=== PATIENT | female | born 1960 | race Caucasian/White ===

== ENCOUNTER 2019-10-06 11:59 | Observation (INO) | payer BC ==
[2019-10-06] MEDS ORDERED: Sodium Chloride 0.9% 10 ML Syringe FLUSH PRN (12:00)
[2019-10-06] MEDS ORDERED: Sodium Chloride 0.9% 2.5 ML Syringe FLUSH PRN (12:00)
--- NOTE | 2019-10-06 12:12 | EDM.PDOC ---
ED HPI GENERAL MEDICAL PROBLEM - General Chief Complaint: Chest Pain Stated Complaint: CHEST PAIN Time Seen by Provider: 10/06/19 12:08 History Limitations: Reports: No Limitations - History of Present Illness INITIAL COMMENTS - FREE TEXT/NARRATIVE: 59 yo Female with chest pain and left arm numbness. 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 chest Pain Score (Numeric/FACES): 3 - Related Data Allergies Allergy/AdvReac Type Severity Reaction Status Date / Time aspirin Allergy Cannot Verified 10/06/19 12:01 Remember ivp dye Allergy Cannot Uncoded 05/11/15 17:21 Remember Home Meds: Home Meds Levothyroxine 25 mcg PO ACBREAKFAST 05/11/15 [History] Lisinopril 05/11/15 [History] OXcarbazepine [Oxcarbazepine] 05/11/15 [History] atorvaSTATin [Lipitor] 05/11/15 [History] buPROPion [Wellbutrin] 75 mg PO BEDTIME 05/11/15 [History] traZODone 200 mg PO BEDTIME 05/11/15 [History] Past Medical History Cardiovascular History: Reports: High Cholesterol, Hypertension Gastrointestinal History: Reports: GERD 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 Denies: Fever, Chills, Malaise HEENT: Reports: No Symptoms. Denies: Contact Lenses, Dental Pain, Eye Pain, Glasses Respiratory: Reports: No Symptoms. Denies: Shortness of Breath, Wheezing, Pleuritic Chest Pain Cardiovascular: Reports: Chest Pain. Denies: Blood Pressure Problem, Claudication, Dyspnea on Exertion, Edema, Palpitations Endocrine: Reports: No Symptoms. Denies: Fatigue, High Glucose, Low Glucose GI/Abdominal: Reports: No Symptoms. Denies: Abdominal Pain, Anorexia : Reports: No Symptoms. Denies: Discharge, Dysuria Musculoskeletal: Reports: No Symptoms. Denies: Neck Pain, Shoulder Pain, Leg Pain Skin: Reports: No Symptoms. Denies: Cyanosis, Jaundice, Mottled Neurological: Reports: No Symptoms Psychiatric: Reports: No Symptoms Hematologic/Lymphatic: Reports: No Symptoms Immunologic: Reports: No Symptoms ED EXAM, GENERAL - Physical Exam Exam: See Below Exam Limited By: No Limitations General Appearance: Alert, WD/WN, No Apparent Distress Eye Exam: Bilateral Eye: Normal Fundi, Normal Inspection Ears: Normal External Exam, Normal Canal, Normal TMs Ear Exam: Bilateral Ear: Auricle Normal, Canal Normal, TM normal, Bleeding, Discharge Nose: Normal Inspection, Normal Mucosa Throat/Mouth: Normal Inspection, Normal Lips Head: Atraumatic, Normocephalic Neck: Normal Inspection, Supple, Non-Tender Respiratory/Chest: No Respiratory Distress, Lungs Clear, Normal Breath Sounds Cardiovascular: Normal Peripheral Pulses, No JVD, No Murmur GI/Abdominal: Normal Bowel Sounds, Soft, Non-Tender, No Organomegaly (Female) Exam: Deferred Rectal (Female) Exam: No: Deferred Back Exam: Normal Inspection, Full Range of Motion Extremities: Normal Inspection, Normal Range of Motion, No Pedal Edema, Normal Capillary Refill Psychiatric: Normal Affect, Normal Mood Skin Exam: Warm, Dry, Intact, Normal Color, No Rash Lymphatic: No Adenopathy Course - Vital Signs Text/Narrative:: 59-year-old female presents the emergency room with a chief complaint of left- sided chest pain. Also has left elbow pain. Had a cardiogram 3 months ago which showed a an ejection fraction of 65 and no evidence of valvular problems. Patient also had signs of enlargement of the left side of the chest. Patient has never been cathed and she has a history of hypertension and is a smoker. Patient's exam for the most part has been negative. Patient's cardiac enzymes are normal. Patient's EKG is normal. I have discussed the case with her primary care physician and he agrees the patient should be observed overnight and he will follow-up for care for possible cardiology consult when this acute episode is controlled. Patient will be admitted for chest pain. Last Recorded V/S: Last Vital Signs Temp 96.2 F L 10/06/19 12:00 Pulse 73 10/06/19 13:43 Resp 18 10/06/19 12:00 BP 192/90 H 10/06/19 13:43 Pulse Ox 96 10/06/19 13:43 - Orders/Labs/Meds Orders: Active Orders 24 hr Category Date Time Status EKG Documentation Completion [RC] STAT Care 10/06/19 12:00 Active Nitroglycerin [Nitrostat] Med 10/06/19 13:59 Ordered 0.4 mg SL Q5M PRN Sodium Chloride 0.9% [Saline Flush] Med 10/06/19 12:00 Active 10 ml FLUSH ASDIRECTED PRN Sodium Chloride 0.9% [Saline Flush] Med 10/06/19 12:00 Active 2.5 ml FLUSH ASDIRECTED PRN Saline Lock Insert [OM.PC] Stat Oth 10/06/19 12:00 Ordered Medication Orders Nitroglycerin (Nitrostat) 0.4 mg SL Q5M PRN PRN Reason: Chest Pain Sodium Chloride (Saline Flush) 10 ml FLUSH ASDIRECTED PRN PRN Reason: Keep Vein Open Sodium Chloride (Saline Flush) 2.5 ml FLUSH ASDIRECTED PRN PRN Reason: Keep Vein Open Labs: Laboratory Tests 10/06/19 10/06/19 Range/Units 12:12 12:26 WBC 8.02 (4.0-11.0) K/uL RBC 5.08 (4.30-5.90) M/uL Hgb 15.5 (12.0-16.0) g/dL Hct 45.6 (36.0-46.0) % MCV 89.8 (80.0-98.0) fL MCH 30.5 (27.0-32.0) pg MCHC 34.0 (31.0-37.0) g/dL RDW Std Deviation 43.7 (28.0-62.0) fl RDW Coeff of Yessy 13 (11.0-15.0) % Plt Count 247 (150-400) K/uL MPV 8.90 (7.40-12.00) fL Neut % (Auto) 65.2 (48.0-80.0) % Lymph % (Auto) 26.7 (16.0-40.0) % [place] % (Auto) 6.0 (0.0-15.0) % Eos % (Auto) 1.7 (0.0-7.0) % Baso % (Auto) 0.4 (0.0-1.5) % Neut # (Auto) 5.2 (1.4-5.7) K/uL Lymph # (Auto) 2.1 (0.6-2.4) K/uL [place] # (Auto) 0.5 (0.0-0.8) K/uL Eos # (Auto) 0.1 (0.0-0.7) K/uL Baso # (Auto) 0.0 (0.0-0.1) K/uL Nucleated RBC % 0.0 /100WBC Nucleated RBCs # 0 K/uL Sodium 139 (136-145) mmol/L Potassium 4.4 (3.5-5.1) mmol/L Chloride 100 (98-107) mmol/L Carbon Dioxide 29.4 (21.0-32.0) mmol/L BUN 14 (7.0-18.0) mg/dL Creatinine 0.8 (0.6-1.0) mg/dL Est Cr Clr Drug Dosing 65.38 mL/min Estimated GFR (MDRD) > 60.0 ml/min Glucose 100 (74-106) mg/dL Calcium 9.8 (8.5-10.1) mg/dL Total Bilirubin 0.5 (0.2-1.0) mg/dL AST 24 (15-37) IU/L ALT 18 (14-63) IU/L Alkaline Phosphatase 159 H (46-116) U/L Troponin I < 0.050 (0.000-0.056) ng/mL Total Protein 7.5 (6.4-8.2) g/dL Albumin 3.6 (3.4-5.0) g/dL Globulin 3.9 (2.6-4.0) g/dL Albumin/Globulin Ratio 0.9 (0.9-1.6) Meds: Medications Generic Name Dose Route Start Last Admin Trade Name Freq PRN Reason Stop Dose Admin Nitroglycerin 0.4 mg 10/06/19 13:59 Nitrostat SL Q5M PRN Chest Pain Sodium Chloride 10 ml 10/06/19 12:00 Saline Flush FLUSH ASDIRECTED PRN Keep Vein Open Sodium Chloride 2.5 ml 10/06/19 12:00 Saline Flush FLUSH ASDIRECTED PRN Keep Vein Open Discontinued Medications Generic Name Dose Route Start Last Admin Trade Name Freq PRN Reason Stop Dose Admin Aspirin 325 mg 10/06/19 14:00 Aspirin PO 10/06/19 14:01 ONETIME ONE Morphine Sulfate 4 mg 10/06/19 13:58 Morphine IVPUSH 10/06/19 13:59 ONETIME ONE Ondansetron HCl 4 mg 10/06/19 13:59 Zofran IVPUSH 10/06/19 14:00 ONETIME ONE Departure - Departure Time of Disposition: 14:04 Disposition: Refer to Observation Clinical Impression: Atypical chest pain Instructions: Nonspecific Chest Pain, [id number] Referrals: PCP,None [Primary Care Provider] - Forms: ED Department Discharge Sepsis Event Note - Evaluation Sepsis Screening Result: No Definite Risk - Focused Exam Vital Signs: Vital Signs Temp Pulse Resp BP Pulse Ox 10/06/19 13:43 73 192/90 H 96 10/06/19 12:00 96.2 F L 78 18 181/94 H 98 Date Exam was Performed: 10/06/19 Time Exam was Performed: 14:01 - My Orders Last 24 Hours: My Active Orders 10/06/19 13:59 Nitroglycerin [Nitrostat] 0.4 mg SL Q5M PRN - Assessment/Plan Last 24 Hours: My Active Orders 10/06/19 13:59 Nitroglycerin [Nitrostat] 0.4 mg SL Q5M PRN
[2019-10-06 12:55] LABS: BLOOD UREA NITROGEN,BUN 14 mg/dL (7.0-18.0); CARBON DIOXIDE,CO2 29.4 mmol/L (21.0-32.0); CHLORIDE,CL 100 mmol/L (98-107); GLUCOSE RANDOM 100 mg/dL (74-106); POTASSIUM,K 4.4 mmol/L (3.5-5.1); SODIUM,NA 139 mmol/L (136-145)
--- NOTE | 2019-10-06 13:21 | CR ---
Chest: AP view of the chest was obtained. Comparison: Prior chest x-ray of 03/21/15. Heart size and mediastinum are normal. Lungs are clear with no acute parenchymal change. Bony structures are grossly intact. Impression: 1. Nothing acute is appreciated on AP chest x-ray. Diagnostic code #1 This report was dictated in MDT
[2019-10-06] MEDS ORDERED: Morphine 4 MG/ML Syringe IVPUSH ONE (13:58)
[2019-10-06] MEDS ORDERED: Ondansetron 4 MG/2 ML SDV IVPUSH ONE (13:59)
[2019-10-06] MEDS ORDERED: Nitroglycerin 0.4 MG Tab.SL SL PRN (13:59)
[2019-10-06] MEDS ORDERED: Aspirin 325 MG Tab PO ONE (14:00)
[2019-10-06] MEDS ORDERED: LORazepam 1 MG Tab PO ONE (14:05)
[2019-10-06] MEDS ORDERED: Acetaminophen 325 MG Tab PO PRN (15:30)
[2019-10-06] MEDS ORDERED: Ondansetron 4 MG/2 ML SDV IVPUSH PRN (15:30)
--- NOTE | 2019-10-06 16:04 | PCM.HP.2 ---
H&P History of Present Illness - General Date of Service: 10/06/19 Admit Problem/Dx: Admission Diagnosis/Problem Admission Diagnosis/Problem Chest pain Source of Information: Patient History Limitations: Reports: No Limitations - History of Present Illness Initial Comments - Free Text/Narative: This 59 year old female with pmh of HTN, tobacco abuse, hypothyroidism and anxiety presented to the ED with complaints of midsternal chest pain that started earlier today. She reports the pain radiated in between her scapula and was achey irritating in nature. She also felt numbness and tingling down bilateral arms from elbow down. She reports she has had some neck pain, like she slept wrong, the last day or two. She denies shortness of breath, diaphoresis, or nausea. She denies fevers, chills or palpitations. No URI symptoms. No abdominal pain or urinary symptoms. She reports she has a very stressful job and needs some time away to take care of herself. She reports she has gained 35 lbs in the last few months. She denies CAD or DM. Smokes 1 ppd, but is very motivated to quit now. No alcohol or recreational drug use. In the ED labwork WNL. Troponins negative. CXR negative. EKG SR with no ST changes. BP elevated on arrival, after Ativan given, she was able to calm down and felt improved. She refused Morphine and ZOfran. Aspirin held due to allergy. She is feeling improved now and wanting to go home, but knows she should be evaluated. PCP, Dr Hutson. chest Pain Score (Numeric/FACES): 3 - Related Data Allergies/Adverse Reactions: Allergies Allergy/AdvReac Type Severity Reaction Status Date / Time aspirin Allergy Cannot Verified 10/06/19 16:11 Remember ivp dye Allergy Cannot Uncoded 10/06/19 16:11 Remember Home Medications: Home Meds Levothyroxine 25 mcg PO ACBREAKFAST 05/11/15 [History] Lisinopril 05/11/15 [History] OXcarbazepine [Oxcarbazepine] 05/11/15 [History] atorvaSTATin [Lipitor] 05/11/15 [History] buPROPion [Wellbutrin] 75 mg PO BEDTIME 05/11/15 [History] traZODone 200 mg PO BEDTIME 05/11/15 [History] Past Medical History HEENT History: Reports: Impaired Vision Cardiovascular History: Reports: High Cholesterol, Hypertension. Denies: Afib, Blood Clots/VTE/DVT, CAD, AR, Stents Respiratory History: Reports: None. 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 Musculoskeletal History: Reports: None Neurological History: Reports: None Psychiatric History: Reports: None Endocrine/Metabolic History: Reports: None Hematologic History: Reports: None Immunologic History: Reports: None Oncologic (Cancer) History: Reports: None Dermatologic History: Reports: None - Infectious Disease History Infectious Disease History: Reports: None - Past Surgical History Female Surgical History: Reports: Endometrial Ablation Social & Family History - Family History Family Medical History: Noncontributory - Tobacco Use Smoking Status *Q: Current Every Day Smoker Years of Tobacco use: 30 Packs/Tins Daily: 1.5 - Caffeine Use Caffeine Use: Reports: None - Recreational Drug Use Recreational Drug Use: No - Living Situation & Occupation Living situation: Reports: Occupation: Employed H&P Review of Systems - Review of Systems: Review Of Systems: See Below General: Reports: No Symptoms. Denies: Fever, Malaise, Weakness HEENT: Reports: No Symptoms. Denies: Headaches, Sinus Congestion, Sore Throat Pulmonary: Denies: Shortness of Breath, Cough Cardiovascular: Reports: Chest Pain (midsternal, nearly gone now). Denies: Edema Gastrointestinal: Reports: No Symptoms. Denies: Abdominal Pain, Black Stool, Bloody Stool, Nausea, Vomiting Genitourinary: Reports: No Symptoms. Denies: Dysuria, Frequency, Burning Musculoskeletal: Reports: Neck Pain (sore neck, ability to move is not diminished.) Psychiatric: Reports: No Symptoms Neurological: Reports: No Symptoms Hematologic/Lymphatic: Reports: No Symptoms Immunologic: Reports: No Symptoms Exam - Exam Exam: See Below - Vital Signs Vital Signs: Last Vital Signs Temp 96.2 F L 10/06/19 12:00 Pulse 73 10/06/19 13:43 Resp 18 10/06/19 12:00 BP 207/85 H 10/06/19 14:44 Pulse Ox 96 10/06/19 13:43 Weight: 111.13 kg - Exam General: Alert, Oriented, Cooperative HEENT: Conjunctiva Clear, Mucosa Moist & [place], Posterior Pharynx Clear Neck: Supple, Trachea Midline Lungs: Clear to Auscultation, Normal Respiratory Effort Cardiovascular: Regular Rate, Regular Rhythm, Normal S1, Normal S2 Back Exam: Normal Inspection, Full Range of Motion Extremities: Normal Inspection, Normal Range of Motion, Non-Tender, No Pedal Edema Neuro Extensive - Mental Status: Alert, Oriented x3 Neuro Extensive - Motor, Sensory, Reflexes: CN II-XII Intact, Normal Gait Psychiatric: Alert, Normal Affect, Normal Mood, Anxious (improving) - Patient Data Lab Results Last 24 hrs: Laboratory Results - last 24 hr 10/06/19 10/06/19 Range/Units 12:12 12:26 WBC 8.02 (4.0-11.0) K/uL RBC 5.08 (4.30-5.90) M/uL Hgb 15.5 (12.0-16.0) g/dL Hct 45.6 (36.0-46.0) % MCV 89.8 (80.0-98.0) fL MCH 30.5 (27.0-32.0) pg MCHC 34.0 (31.0-37.0) g/dL RDW Std Deviation 43.7 (28.0-62.0) fl RDW Coeff of Yessy 13 (11.0-15.0) % Plt Count 247 (150-400) K/uL MPV 8.90 (7.40-12.00) fL Neut % (Auto) 65.2 (48.0-80.0) % Lymph % (Auto) 26.7 (16.0-40.0) % [place] % (Auto) 6.0 (0.0-15.0) % Eos % (Auto) 1.7 (0.0-7.0) % Baso % (Auto) 0.4 (0.0-1.5) % Neut # (Auto) 5.2 (1.4-5.7) K/uL Lymph # (Auto) 2.1 (0.6-2.4) K/uL [place] # (Auto) 0.5 (0.0-0.8) K/uL Eos # (Auto) 0.1 (0.0-0.7) K/uL Baso # (Auto) 0.0 (0.0-0.1) K/uL Nucleated RBC % 0.0 /100WBC Nucleated RBCs # 0 K/uL Sodium 139 (136-145) mmol/L Potassium 4.4 (3.5-5.1) mmol/L Chloride 100 (98-107) mmol/L Carbon Dioxide 29.4 (21.0-32.0) mmol/L BUN 14 (7.0-18.0) mg/dL Creatinine 0.8 (0.6-1.0) mg/dL Est Cr Clr Drug Dosing 65.38 mL/min Estimated GFR (MDRD) > 60.0 ml/min Glucose 100 (74-106) mg/dL Calcium 9.8 (8.5-10.1) mg/dL Total Bilirubin 0.5 (0.2-1.0) mg/dL AST 24 (15-37) IU/L ALT 18 (14-63) IU/L Alkaline Phosphatase 159 H (46-116) U/L Troponin I < 0.050 (0.000-0.056) ng/mL Total Protein 7.5 (6.4-8.2) g/dL Albumin 3.6 (3.4-5.0) g/dL Globulin 3.9 (2.6-4.0) g/dL Albumin/Globulin Ratio 0.9 (0.9-1.6) Result Diagrams: 10/06/19 12:26 10/06/19 12:12 Sepsis Event Note - Evaluation Sepsis Screening Result: No Definite Risk - Focused Exam Vital Signs: Vital Signs Temp Pulse Resp BP BP Pulse Ox 10/06/19 14:44 207/85 H 10/06/19 13:43 73 192/90 H 96 10/06/19 12:00 96.2 F L 78 18 181/94 H 98 Date Exam was Performed: 10/06/19 Time Exam was Performed: 16:24 - Problem List (1) Atypical chest pain SNOMED Code(s): 020338298 ICD Code: R07.89 - OTHER CHEST PAIN Status: Acute Current Visit: Yes (2) Anxiety SNOMED Code(s): 55361833 ICD Code: F41.9 - ANXIETY DISORDER, UNSPECIFIED Status: Acute Current Visit: Yes (3) HTN (hypertension) SNOMED Code(s): 52860853 ICD Code: I10 - ESSENTIAL (PRIMARY) HYPERTENSION Status: Chronic Current Visit: Yes (4) Obesity SNOMED Code(s): 485316678, 124823716 ICD Code: E66.9 - OBESITY, UNSPECIFIED Status: Chronic Current Visit: Yes (5) Hypothyroidism SNOMED Code(s): 89096940 ICD Code: E03.9 - HYPOTHYROIDISM, UNSPECIFIED Status: Chronic Current Visit: Yes Problem List Initiated/Reviewed/Updated: Yes Orders Last 24hrs: Active Orders 24 hr Category Date Time Status Admission Status [Patient Status] [ADT] Stat ADT 10/06/19 14:05 Active EKG Documentation Completion [RC] STAT Care 10/06/19 12:00 Active Intake and Output [RC] QSHIFT Care 10/06/19 15:30 Active May Shower [RC] ASDIRECTED Care 10/06/19 15:30 Active Oxygen Therapy [RC] PRN Care 10/06/19 15:30 Active Telemetry Monitoring [Cardiac Monitoring] [RC] . Care 10/06/19 15:32 Active DIRECTED Up With Assistance [RC] ASDIRECTED Care 10/06/19 15:30 Active VTE/DVT Education [RC] PER UNIT ROUTINE Care 10/06/19 15:30 Active Vital Signs [RC] Q4H Care 10/06/19 15:30 Active Heart Healthy Diet [DIET] Diet 10/06/19 Lunch Active GLYCOSYLATED HEMOGLOBIN,HGBA1C [CHEM] Routine Lab 10/06/19 12:26 Received LIPID PANEL [CHEM] Routine Lab 10/06/19 16:01 Ordered TROPONIN I [CHEM] Q6H Lab 10/06/19 18:00 Ordered TROPONIN I [CHEM] Q6H Lab 10/07/19 00:00 Ordered Acetaminophen [Tylenol] Med 10/06/19 15:30 Active 650 mg PO Q4H PRN Nitroglycerin [Nitrostat] Med 10/06/19 13:59 Active 0.4 mg SL Q5M PRN Ondansetron [Zofran] Med 10/06/19 15:30 Active 4 mg IVPUSH Q4H PRN Sodium Chloride 0.9% [Saline Flush] Med 10/06/19 12:00 Active 10 ml FLUSH ASDIRECTED PRN Sodium Chloride 0.9% [Saline Flush] Med 10/06/19 12:00 Active 2.5 ml FLUSH ASDIRECTED PRN Saline Lock Insert [OM.PC] Stat Oth 10/06/19 12:00 Ordered Resuscitation Status Routine Resus Stat 10/06/19 15:30 Ordered Medication Orders Acetaminophen (Tylenol) 650 mg PO Q4H PRN PRN Reason: Pain (Mild 1-3)/fever Nitroglycerin (Nitrostat) 0.4 mg SL Q5M PRN PRN Reason: Chest Pain Last Admin: 10/06/19 14:44 Dose: 0.4 mg Ondansetron HCl (Zofran) 4 mg IVPUSH Q4H PRN PRN Reason: Nausea Sodium Chloride (Saline Flush) 10 ml FLUSH ASDIRECTED PRN PRN Reason: Keep Vein Open Sodium Chloride (Saline Flush) 2.5 ml FLUSH ASDIRECTED PRN PRN Reason: Keep Vein Open Assessment/Plan Comment:: This 59 year old female admitted with atypical chest pain 1. Atypical chest pain: - Monitor on telemetry - Trend troponins - A1c 5.9, obtain lipid panel and TSH - Set up for outpatient stress test 2. HTN: - Elevated, monitor. - May need to increase Lisinopril. 3. Hypothyroidism - Monitor TSH - Restart Levothyroxine VTE prophylaxis: SCDs Code Status: Full Code Dispo: 1 day - Mortality Measure Prognosis:: Good
[2019-10-06 16:10] LABS: HEMOGLOBIN A1C 5.9 % (4.5-6.2)
[2019-10-06] MEDS ORDERED: Pneumococcal Polyvalent-23 Vaccine 0.5 ML SDV IM ONE (16:26)
[2019-10-06] MEDS ORDERED: FLU Vacc QS2019-20(6MOS+)/PF 60 MCG/0.5 ML SYRINGE IM ONE (16:45)
[2019-10-06] MEDS ORDERED: atorvaSTATin 10 MG Tab ** OWN MED PO SCH (21:00)
[2019-10-06] MEDS ORDERED: TRAZODONE HCL 100 MG PO SCH (21:00)
[2019-10-07] MEDS ORDERED: LEVOTHYROXINE 88 MCG PO SCH (07:30)
[2019-10-07 07:54] VITALS: BP 162/84; PULSE 94
[2019-10-07] MEDS ORDERED: LISINOPRIL 20 MG PO SCH (09:00)
[2019-10-07] MEDS ORDERED: VENLAFAXINE 75 MG PO SCH (09:00)
[2019-10-07] MEDS ORDERED: Omeprazole 20 MG Cap.CR PO SCH (09:45)
--- NOTE | 2019-10-07 12:37 | PCM.DCSUM1 ---
Discharge Summary - Hospital Course Brief History: This 59 year old female with pmh of HTN, tobacco abuse, hypothyroidism and anxiety presented to the ED with complaints of midsternal chest pain that started earlier today. She reports the pain radiated in between her scapula and was achey irritating in nature. She also felt numbness and tingling down bilateral arms from elbow down. She reports she has had some neck pain, like she slept wrong, the last day or two. She denies shortness of breath , diaphoresis, or nausea. She denies fevers, chills or palpitations. No URI symptoms. No abdominal pain or urinary symptoms. She reports she has a very stressful job and needs some time away to take care of herself. She reports she has gained 35 lbs in the last few months. She denies CAD or DM. Smokes 1 ppd, but is very motivated to quit now. No alcohol or recreational drug use. In the ED labwork WNL. Troponins negative. CXR negative. EKG SR with no ST changes. BP elevated on arrival, after Ativan given, she was able to calm down and felt improved. She refused Morphine and ZOfran. Aspirin held due to allergy. She is feeling improved now and wanting to go home, but knows she should be evaluated. PCP, Dr Hutson. Diagnosis: Stroke: No Modified Hood Scale: No Symptoms at All Modified Hood Scale Score: 0 - Discharge Data Discharge Date: 10/07/19 Discharge Disposition: Home, Self-Care 01 Condition: Good - Referral to Home Health Primary Care Physician: PCP None - Discharge Diagnosis/Problem(s) (1) Atypical chest pain SNOMED Code(s): 558414559 ICD Code: R07.89 - OTHER CHEST PAIN Status: Acute (2) Anxiety SNOMED Code(s): 53672246 ICD Code: F41.9 - ANXIETY DISORDER, UNSPECIFIED Status: Acute (3) HTN (hypertension) SNOMED Code(s): 06248385 ICD Code: I10 - ESSENTIAL (PRIMARY) HYPERTENSION Status: Chronic (4) Obesity SNOMED Code(s): 090262660, 647319950 ICD Code: E66.9 - OBESITY, UNSPECIFIED Status: Chronic (5) Hypothyroidism SNOMED Code(s): 86646005 ICD Code: E03.9 - HYPOTHYROIDISM, UNSPECIFIED Status: Chronic - Patient Instructions Diet: Heart Healthy Diet Activity: As Tolerated, No Strenuous Activities Showering/Bathing: May Shower Notify Provider of: Fever, Increased Pain, Swelling and Redness, Drainage, Nausea and/or Vomiting Other/Special Instructions: Monitor Blood pressure at home, keep log and bring to follow up appointment. Quit Smoking!! You can do it! - Discharge Plan *PRESCRIPTION DRUG MONITORING PROGRAM REVIEWED*: Not Applicable *COPY OF PRESCRIPTION DRUG MONITORING REPORT IN PATIENT ANGELINA: Not Applicable Home Medications: Home Meds Levothyroxine 88 mcg PO ACBREAKFAST 05/11/15 [History] Lisinopril 20 mg PO DAILY 05/11/15 [History] atorvaSTATin [Lipitor] 10 mg PO BEDTIME 05/11/15 [History] traZODone 200 mg PO BEDTIME 05/11/15 [History] Omeprazole 40 mg PO DAILY 10/06/19 [History] Venlafaxine [Effexor XR] 75 mg PO DAILY 10/06/19 [History] Oxygen Therapy Mode: Room Air Patient Handouts: Heart-Healthy Eating Plan, [id number], DASH Eating Plan, Nonspecific Chest Pain, [id number] Referrals: [facility] [Outside] Kelly Carl MD [Ordering Only Provider] - 10/14/19 1:15 pm (Dr Hutson did not have an appointment available until October) - Discharge Summary/Plan Comment DC Time >30 min.: No Discharge Summary/Plan Comment: Admitting Diagnoses: Atypical chest pain Discharge Diagnoses: Atypical chest pain Other PMH: Obesity HTN Dyslipidemia Tobacco dependence Clarice was admitted secondary to chest pain, which was atypical in nature. She came in very anxious and was noted to have elevated BP as well. Troponins were trended, which remains negative. EKG SR with no acute ischemic changes. BP improved, slightly elevated though prior to home dosing of Lisinopril, 160/80s. She was counseled on monitoring BP at home and logging it for her PCP. She reports everytime the nurses check her BP she gets anxious. No adjustment to home meds, as home monitoring should be done to evaluate properly. She agreed with this. A1c 5.9, Cholesterol 211 total, LDL 128 HDL 53 and Triglycerides 148. She was counseled on DASH diet and overall lifestyle modifications. Daughter at bedside as well. She was highly motivated to quit smoking and [place] quitline information provided. She is to follow up with Dr. Hutson as outpatient as well as have outpatient stress test. She is to return to ED or clinic if concerns should arise. - Patient Data Vitals - Most Recent: Last Vital Signs Temp 97.2 F 10/07/19 07:00 Pulse 94 10/07/19 07:00 Resp 17 10/07/19 07:00 BP 162/84 H 10/07/19 07:00 Pulse Ox 94 L 10/07/19 07:00 Weight - Most Recent: 114.26 kg I&O - Last 24 hours: Intake & Output 10/06/19 10/07/19 10/07/19 22:59 06:59 14:59 Intake Total 240 Output Total 650 Balance -410 Lab Results - Last 24 hrs: Laboratory Results - last 24 hr 10/06/19 10/06/19 10/06/19 Range/Units 12:12 12:12 12:26 Sodium 139 (136-145) mmol/L Potassium 4.4 (3.5-5.1) mmol/L Chloride 100 (98-107) mmol/L Carbon Dioxide 29.4 (21.0-32.0) mmol/L BUN 14 (7.0-18.0) mg/dL Creatinine 0.8 (0.6-1.0) mg/dL Est Cr Clr Drug Dosing 65.38 mL/min Estimated GFR (MDRD) > 60.0 ml/min Glucose 100 (74-106) mg/dL Hemoglobin A1c 5.9 (4.5-6.2) % Calcium 9.8 (8.5-10.1) mg/dL Total Bilirubin 0.5 (0.2-1.0) mg/dL AST 24 (15-37) IU/L ALT 18 (14-63) IU/L Alkaline Phosphatase 159 H (46-116) U/L Troponin I < 0.050 (0.000-0.056) ng/mL Total Protein 7.5 (6.4-8.2) g/dL Albumin 3.6 (3.4-5.0) g/dL Globulin 3.9 (2.6-4.0) g/dL Albumin/Globulin Ratio 0.9 (0.9-1.6) Triglycerides 148 (0-200) mg/dL Cholesterol 211 H (50-200) mg/dL LDL Cholesterol, Calc 128 (60-180) mg/dL VLDL Cholesterol 29 (5-55) mg/dL HDL Cholesterol 53 (40-60) mg/dL Cholesterol/HDL Ratio 4.0 (3.3-6.0) TSH 3rd Generation (0.36-3.74) uIU/mL 10/06/19 10/06/19 10/07/19 Range/Units 12:26 18:04 00:24 Sodium (136-145) mmol/L Potassium (3.5-5.1) mmol/L Chloride (98-107) mmol/L Carbon Dioxide (21.0-32.0) mmol/L BUN (7.0-18.0) mg/dL Creatinine (0.6-1.0) mg/dL Est Cr Clr Drug Dosing mL/min Estimated GFR (MDRD) ml/min Glucose (74-106) mg/dL Hemoglobin A1c (4.5-6.2) % Calcium (8.5-10.1) mg/dL Total Bilirubin (0.2-1.0) mg/dL AST (15-37) IU/L ALT (14-63) IU/L Alkaline Phosphatase (46-116) U/L Troponin I < 0.050 < 0.050 (0.000-0.056) ng/mL Total Protein (6.4-8.2) g/dL Albumin (3.4-5.0) g/dL Globulin (2.6-4.0) g/dL Albumin/Globulin Ratio (0.9-1.6) Triglycerides (0-200) mg/dL Cholesterol (50-200) mg/dL LDL Cholesterol, Calc (60-180) mg/dL VLDL Cholesterol (5-55) mg/dL HDL Cholesterol (40-60) mg/dL Cholesterol/HDL Ratio (3.3-6.0) TSH 3rd Generation 3.66 (0.36-3.74) uIU/mL Med Orders - Current: Current Medications Acetaminophen (Tylenol) 650 mg PO Q4H PRN PRN Reason: Pain (Mild 1-3)/fever Atorvastatin Calcium (Lipitor) 10 mg PO BEDTIME MALI Last Admin: 10/06/19 21:05 Dose: 10 mg Levothyroxine Sodium (Synthroid) 88 mcg PO ACBREAKFAST [facility] Last Admin: 10/07/19 07:48 Dose: 88 mcg Nitroglycerin (Nitrostat) 0.4 mg SL Q5M PRN PRN Reason: Chest Pain Last Admin: 10/06/19 14:44 Dose: 0.4 mg Lisinopril 20mg (Own Med) 1 each PO DAILY [facility] Last Admin: 10/07/19 09:16 Dose: 1 each Ondansetron HCl (Zofran) 4 mg IVPUSH Q4H PRN PRN Reason: Nausea Omeprazole 40 Mg 1 each PO DAILY [facility] Last Admin: 10/07/19 10:15 Dose: 1 each Sodium Chloride (Saline Flush) 10 ml FLUSH ASDIRECTED PRN PRN Reason: Keep Vein Open Sodium Chloride (Saline Flush) 2.5 ml FLUSH ASDIRECTED PRN PRN Reason: Keep Vein Open Trazodone HCl (Trazodone Hcl) 200 mg PO BEDTIME [facility] Last Admin: 10/06/19 21:05 Dose: 200 mg Venlafaxine HCl (Effexor Xr) 75 mg PO DAILY [facility] Last Admin: 10/07/19 09:14 Dose: 75 mg Discontinued Medications Aspirin (Aspirin) 325 mg PO ONETIME ONE Stop: 10/06/19 14:01 Last Admin: 10/06/19 14:32 Dose: Not Given Influenza Virus Vaccine (Pharmacy To Dose - Influenza Vaccine) 1 each IM ONETIME ONE Stop: 10/06/19 16:27 Influenza Virus Vaccine (Fluzone Quad [id number] Syringe) 60 mcg IM .ONCE ONE Stop: 10/06/19 16:46 Lorazepam (Ativan) 1 mg PO ONETIME ONE Stop: 10/06/19 14:06 Last Admin: 10/06/19 14:32 Dose: 1 mg Morphine Sulfate (Morphine) 4 mg IVPUSH ONETIME ONE Stop: 10/06/19 13:59 Last Admin: 10/06/19 14:03 Dose: Not Given Omeprazole (Omeprazole) 40 mg PO DAILY [facility] Last Admin: 10/07/19 10:18 Dose: Not Given Ondansetron HCl (Zofran) 4 mg IVPUSH ONETIME ONE Stop: 10/06/19 14:00 Last Admin: 10/06/19 14:03 Dose: Not Given Pneumococcal Polyvalent Vaccine (Pneumovax 23) 0.5 ml IM .ONCE ONE Stop: 10/06/19 16:27 - Exam General: Reports: Alert, Oriented, Cooperative, No Acute Distress Lungs: Reports: Clear to Auscultation, Normal Respiratory Effort Cardiovascular: Reports: Regular Rate, Regular Rhythm GI/Abdominal Exam: Normal Bowel Sounds, Soft, Non-Tender Extremities: Normal Inspection, Normal Range of Motion, Non-Tender, No Pedal Edema Neurological: Reports: No New Focal Deficit Psy/Mental Status: Reports: Alert, Normal Affect, Normal Mood
== END 2019-10-07 11:15 | disposition home or self-care (01) ==
LOC: MW.ED 11:59 → MW.MS 14:05
PROVIDERS: ADMIT Internal Medicine; ATTEND Internal Medicine
DX: R07.89 Other chest pain (principal); F41.9 Anxiety disorder, unspecified; I10 Essential (primary) hypertension; E03.9 Hypothyroidism, unspecified; E78.00 Pure hypercholesterolemia, unspecified; F17.210 Nicotine dependence, cigarettes, uncomplicated; E66.9 Obesity, unspecified; Z68.41 Body mass index [BMI] 40.0-44.9, adult; Z88.6 Allergy status to analgesic agent; Z91.041 Radiographic dye allergy status; Z79.899 Other long term (current) drug therapy
CPT/HCPCS: 36415; 71045; 80053; 80061; 83036; 84443; 84484; 85025; 93005; 99285; A9270; G0378; 99284

== ENCOUNTER 2021-02-11 17:07 | Emergency (ER) | payer BC ==
[2021-02-11] MEDS ORDERED: Lidocaine 1% with EPINEPHrine 1:100,000 20 ML MDV INJECT ONE (18:24)
[2021-02-11] MEDS ORDERED: Diphtheria,Pertussis(Acell),Tetanus Vaccine 0.5 ML Syringe IM ONE (18:24)
--- NOTE | 2021-02-11 19:30 | EDM.PDOC ---
ED HPI GENERAL MEDICAL PROBLEM - General Chief Complaint: Laceration Stated Complaint: CUT LEG Time Seen by Provider: 02/11/21 18:07 Source of Information: Reports: Patient History Limitations: Reports: No Limitations - History of Present Illness INITIAL COMMENTS - FREE TEXT/NARRATIVE: HISTORY AND PHYSICAL: History of present illness: Patient is a 60-year-old female who presents to the ED today with concern of right patel laceration that occurred just prior to travel to the ED. Patient states that there was an old bird house on top of a dresser and was underneath some clothing and did not know it was there. Patient states she moved the clothing and the bird house fell and she sustained a laceration to her right lower extremity. Patient states that she is not up-to-date on tetanus and would like to update this today. Patient denies fever, chills, chest pain, shortness of breath, or cough. Denies headache, neck stiff ness, change in vision, syncope, or near syncope. Denies nausea, vomiting, abdominal pain, diarrhea, constipation, or dysuria. Has not noted any blood in urine or stool. Patient has been eating and drinking appropriately. Review of systems: As per history of present illness and below otherwise all systems reviewed and negative. Past medical history: As per history of present illness and as reviewed below otherwise noncontributory. Surgical history: As per history of present illness and as reviewed below otherwise noncontributory. Social history: See social history for further information Family history: As per history of present illness and as reviewed below otherwise noncontributory. Physical exam: General: Patient is alert, oriented, and in no acute distress. Patient sitting comfortably on exam table. HEENT: Atraumatic, normocephalic, pupils equal and reactive bilaterally, negative for conjunctival pallor or scleral icterus, mucous membranes moist, TMs normal bilaterally, throat clear, neck supple, nontender, trachea midline. No drooling or trismus noted. No meningeal signs. No hot potato voice noted. Lungs: Clear to auscultation, breath sounds equal bilaterally, chest nontender. Heart: S1S2, regular rate and rhythm without overt murmur Abdomen: Soft, nondistended, nontender. Negative for masses or hepatosplenomegaly. Negative for costovertebral tenderness. Pelvis: Stable nontender. Genitourinary: Deferred. Rectal: Deferred. Skin: Intact, warm, dry. No lesions or rashes noted. Extremities: There is a 7 cm subcutaneous triangular-shaped laceration of the right lower extremity patel with hemostasis. This is a flap-like laceration that does go down to the extent of the muscle but does not involve the muscle or tendon. Patient has full range of motion of the complete right lower extremity without pain or difficulty. Dorsalis pedis and posterior tibial pulses are grossly intact of the right lower extremity with capillary refill less than 2 seconds. All compartments are soft of the right lower extremity. Otherwise, atraumatic, negative for cords or calf pain. Neurovascular unremarkable. Neuro: Awake, alert, oriented. Cranial nerves II through XII unremarkable. Cerebellum unremarkable. Motor and sensory unremarkable throughout. Exam nonfocal. Notes: Signs and symptoms are prompt return to the ED thoroughly discussed with patient. Discussed importance for follow-up with a primary care provider. Voices understanding and is agreeable to plan of care. Denies any further questions or concerns at this time. Diagnostics: None (I did offer an x-ray to rule out foreign body but patient declines stating she does not think there is a foreign body in the laceration) Therapeutics: Lidocaine with epi, sutures, sterile dressing, tetanus Prescription: None Impression: Lower extremity laceration, right Plan: 1. Keep the area clean and dry. Continue to monitor for signs of infection as discussed. Sutures to be removed in 7-10 days. 2. Tylenol and/or ibuprofen as directed and as needed for pain management and discomfort. 3. Please follow-up with your primary care provider as discussed. Return to the ED as needed and as discussed. Definitive disposition and diagnosis as appropriate pending reevaluation and review of above. Right Lower Leg Pain Score (Numeric/FACES): 2 - Related Data Allergies Allergy/AdvReac Type Severity Reaction Status Date / Time aspirin Allergy Cannot Verified 02/11/21 18:15 Remember ivp dye Allergy Cannot Uncoded 02/11/21 18:15 Remember Home Meds: Home Meds Levothyroxine 88 mcg PO ACBREAKFAST 05/11/15 [History] Lisinopril 20 mg PO DAILY 05/11/15 [History] atorvaSTATin [Lipitor] 10 mg PO BEDTIME 05/11/15 [History] traZODone 200 mg PO BEDTIME 05/11/15 [History] Omeprazole 40 mg PO DAILY 10/06/19 [History] Venlafaxine [Effexor XR] 75 mg PO DAILY 10/06/19 [History] Past Medical History HEENT History: Reports: Impaired Vision Cardiovascular History: Reports: High Cholesterol, Hypertension Respiratory History: Reports: None Gastrointestinal History: Reports: GERD Genitourinary History: Reports: Urinary Incontinence 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: Endometriosis Musculoskeletal History: Reports: Osteoarthritis Neurological History: Reports: Migraines Psychiatric History: Reports: Anxiety, Depression Endocrine/Metabolic History: Reports: Hypothyroidism Hematologic History: Reports: None Immunologic History: Reports: None Oncologic (Cancer) History: Reports: None Dermatologic History: Reports: None - Infectious Disease History Infectious Disease History: Reports: Chicken Pox, Measles, Mumps - Past Surgical History Head Surgeries/Procedures: Reports: None HEENT Surgical History: Reports: Tonsillectomy Cardiovascular Surgical History: Reports: None Respiratory Surgical History: Reports: None GI Surgical History: Reports: None Female Surgical History: Reports: Endometrial Ablation Other Female Surgeries/Procedures: Endometrial ablation 7-8 times Endocrine Surgical History: Reports: None Neurological Surgical History: Reports: None Musculoskeletal Surgical History: Reports: Other (See Below) Other Musculoskeletal Surgeries/Procedures:: 3 surgieries on each knee Oncologic Surgical History: Reports: None Dermatological Surgical History: Reports: None Social & Family History - Family History Family Medical History: No Pertinent Family History - Tobacco Use Tobacco Use Status *Q: Current Every Day Tobacco User Years of Tobacco use: 40 Packs/Tins Daily: 1 - Caffeine Use Caffeine Use: Reports: None - Recreational Drug Use Recreational Drug Use: No - Living Situation & Occupation Living situation: Reports: Occupation: Employed ED ROS GENERAL - Review of Systems Review Of Systems: Comprehensive ROS is negative, except as noted in HPI. ED EXAM, SKIN/RASH Exam: See Below (see dictation) ED SKIN PROCEDURES - Laceration/Wound Repair Right Anterior Leg Appearance: Subcutaneous, Muscle, Irregular, Clean Distal NVT: Neuro & Vascular Intact, No Tendon Injury Anesthetic Type: Local Local Anesthesia - Lidocaine (Xylocaine): 1% with EPI Local Anesthetic Volume: Other (10cc) Skin Prep: Chlorhexidine (Hibiciens), Saline Saline Irrigation (cc's): 500 Exploration/Debridement/Repair: Wound Explored, In a Bloodless Field, Explored to Base, No Foreign Material Found Closed with: Sutures Lac/Wound length In cm: 7 Suture Size: 4-0 # of Sutures: 18 Suture Type: Silk, Interrupted Drain Placement: No Sterile Dressing Applied: Provider Tetanus Status Addressed: Yes Complications: No Course - Vital Signs Last Recorded V/S: Last Vital Signs Temp 96.9 F 02/11/21 18:17 Pulse 89 02/11/21 18:17 Resp 16 02/11/21 18:17 BP 163/76 H 02/11/21 18:17 Pulse Ox 96 02/11/21 18:17 - Orders/Labs/Meds Orders: Active Orders 24 hr Category Date Time Status Vaccines to be Administered [RC] PER UNIT ROUTINE Care 02/11/21 18:24 Active Meds: Medications Discontinued Medications Generic Name Dose Route Start Last Admin Trade Name Yasmany PRN Reason Stop Dose Admin Diphtheria/Tetanus/Acell Pertussis 0.5 ml 02/11/21 18:24 02/11/21 18:29 Diphtheria,Pertussis(Acell),Tetanus Vaccine 0.5 Ml Syringe IM 02/11/21 18:25 0.5 ml .ONCE ONE Administration Lidocaine/Epinephrine 20 ml 02/11/21 18:24 02/11/21 18:29 Lidocaine 1% With Epinephrine 1:100,000 20 Ml Mdv INJECT 02/11/21 18:25 20 ml ONETIME ONE Administration Departure - Departure Time of Disposition: 19:29 Disposition: Home, Self-Care 01 Clinical Impression: Leg laceration Qualifiers: Encounter type: initial encounter Laterality: right Qualified Code(s): S81.811A - Laceration without foreign body, right lower leg, initial encounter - Discharge Information Referrals: Jamarcus Hutson MD [Primary Care Provider] - Forms: ED Department Discharge Additional Instructions: The following information is given to patients seen in the emergency department who are being discharged to home. This information is to outline your options for follow-up care. We provide all patients seen in our emergency department with a follow-up referral. The need for follow-up, as well as the timing and circumstances, are variable depending upon the specifics of your emergency department visit. If you don't have a primary care physician on staff, we will provide you with a referral. We always advise you to contact your personal physician following an emergency department visit to inform them of the circumstance of the visit and for follow-up with them and/or the need for any referrals to a consulting specialist. The emergency department will also refer you to a specialist when appropriate. This referral assures that you have the opportunity for follow-up care with a specialist. All of these measure are taken in an effort to provide you with optimal care, which includes your follow-up. Under all circumstances we always encourage you to contact your private physician who remains a resource for coordinating your care. When calling for follow-up care, please make the office aware that this follow-up is from your recent emergency room visit. If for any reason you are refused follow-up, please contact the [facility] Emergency Department at and asked to speak to the emergency department charge nurse. [facility] [address] [place] [id number] [facility] [address] [place] [address] 1. Keep the area clean and dry. Continue to monitor for signs of infection as discussed. Sutures to be removed in 7-10 days. 2. Tylenol and/or ibuprofen as directed and as needed for pain management and discomfort. 3. Please follow-up with your primary care provider as discussed. Return to the ED as needed and as discussed. Sepsis Event Note (ED) - Evaluation Sepsis Screening Result: No Definite Risk - Focused Exam Vital Signs: Vital Signs Temp Pulse Resp BP Pulse Ox 02/11/21 18:17 96.9 F 89 16 163/76 H 96 - My Orders Last 24 Hours: My Active Orders 02/11/21 18:24 Vaccines to be Administered [RC] PER UNIT ROUTINE - Assessment/Plan Last 24 Hours: My Active Orders 02/11/21 18:24 Vaccines to be Administered [RC] PER UNIT ROUTINE
[2021-02-11 19:40] VITALS: BP 149/81; PULSE 80
== END 2021-02-11 19:40 | disposition home or self-care (01) ==
LOC: MW.ED 17:07
DX: S81.811A Laceration without foreign body, right lower leg, initial encounter (principal); E78.00 Pure hypercholesterolemia, unspecified; I10 Essential (primary) hypertension; K21.9 Gastro-esophageal reflux disease without esophagitis; E03.9 Hypothyroidism, unspecified; Z23 Encounter for immunization; Z72.0 Tobacco use; Z88.8 Allergy status to other drugs, medicaments and biological substances; Z91.041 Radiographic dye allergy status; Z79.899 Other long term (current) drug therapy; W20.8XXA Other cause of strike by thrown, projected or falling object, initial encounter
CPT/HCPCS: 12002; 90471; 90715; 99282; 99282-25

== ENCOUNTER 2021-08-26 14:38 | Emergency (ER) | payer BC ==
[2021-08-26 15:17] VITALS: BP 143/77; PULSE 87
[2021-08-26] MEDS ORDERED: Lidocaine 1% with EPINEPHrine 1:100,000 20 ML MDV INJECT ONE (15:59)
== END 2021-08-26 17:33 | disposition home or self-care (01) ==
LOC: MW.ED 14:38
DX: S81.812A Laceration without foreign body, left lower leg, initial encounter (principal); E78.00 Pure hypercholesterolemia, unspecified; I10 Essential (primary) hypertension; K21.9 Gastro-esophageal reflux disease without esophagitis; E03.9 Hypothyroidism, unspecified; Z91.041 Radiographic dye allergy status; Z88.8 Allergy status to other drugs, medicaments and biological substances; Z79.899 Other long term (current) drug therapy; W22.8XXA Striking against or struck by other objects, initial encounter; Y93.E3 Activity, vacuuming; Y92.001 Dining room of unspecified non-institutional (private) residence as the place of occurrence of the external cause
CPT/HCPCS: 12002; 99282-25

== ENCOUNTER 2023-03-17 02:47 | Emergency (ER) | payer SELFPAY ==
[2023-03-17 03:02] VITALS: BP 192/93; PULSE 90
[2023-03-17] MEDS ORDERED: Cyclobenzaprine 10 MG Tab PO ONE (03:16)
[2023-03-17] MEDS ORDERED: methylPREDNISolone Sodium Succinate 125 MG/2 ML SDV IM ONE (03:16)
[2023-03-17] MEDS ORDERED: Ketorolac 30 MG/ML SDV IM ONE (03:16)
[2023-03-17] MEDS ORDERED: Acetaminophen/oxyCODONE 325-5 MG Tab PO ONE (03:17)
== END 2023-03-17 03:26 | disposition home or self-care (01) ==
LOC: MW.ED 02:47
DX: M54.42 Lumbago with sciatica, left side (principal); E78.00 Pure hypercholesterolemia, unspecified; I10 Essential (primary) hypertension; K21.9 Gastro-esophageal reflux disease without esophagitis; E03.9 Hypothyroidism, unspecified; Z91.041 Radiographic dye allergy status; Z88.8 Allergy status to other drugs, medicaments and biological substances; Z79.899 Other long term (current) drug therapy
CPT/HCPCS: 96372; 99283; A9270; J2930

== ENCOUNTER 2023-03-21 11:20 | Emergency (ER) | payer SELFPAY | END 2023-03-21 12:33 | disposition left against medical advice (07) | LOC: MW.ED 11:20 | DX: Z53.21 Procedure and treatment not carried out due to patient leaving prior to being seen by health care provider (principal) ==

== ENCOUNTER 2023-12-08 09:04 | Emergency (ER) | payer SELFPAY ==
[2023-12-08] MEDS: Sodium Chloride 0.9% 1,000 ML IV ONE (09:54)
[2023-12-08] MEDS: Ondansetron 4 MG/2 ML SDV IVPUSH ONE ×2 (09:54→11:30)
[2023-12-08] MEDS: Sodium Chloride 0.9% 10 ML Syringe FLUSH PRN (09:57)
[2023-12-08] MEDS: Sodium Chloride 0.9% 2.5 ML Syringe FLUSH PRN (09:57)
[2023-12-08 10:16] LABS: BASOPHILS ABSOLUTE AUTO 0.01 K/uL (0.00-0.20); BASOPHILS PERCENT AUTO 0.1 % (0.0-1.0); EOSINOPHILS ABSOLUTE AUTO 0.17 K/uL (0.00-0.45); EOSINOPHILS PERCENT AUTO 2.5 % (0.0-6.0); HEMATOCRIT 38.2 % (37.0-47.0); HEMOGLOBIN 13.1 g/dL (12.0-16.0); IMMATURE GRAN ABSOLUTE AUTO 0.05 K/uL (0.00-0.05); IMMATURE GRAN PERCENT AUTO 0.7 % (0.0-0.4); LYMPHOCYTES ABSOLUTE AUTO 0.83 K/uL (1.00-4.80); LYMPHOCYTES PERCENT AUTO 12.3 % (24.0-44.0); MEAN CORPUSCULAR HEMOGLOBIN 29.8 pg (28.0-32.0); MEAN CORPUSCULAR HGB CONC 34.3 g/dL (32.0-36.0); MEAN CORPUSCULAR VOLUME 86.8 fL (83.0-99.0); MEAN PLATELET VOLUME 8.9 fL (9.4-12.3); MONOCYTES ABSOLUTE AUTO 0.51 K/uL (0.00-0.80); MONOCYTES PERCENT AUTO 7.6 % (0.0-8.0); NEUTROPHILS ABSOLUTE AUTO 5.18 K/uL (1.80-7.70); NEUTROPHILS PERCENT AUTO 76.8 % (41.0-71.0); PLATELET COUNT,PLT 202 K/uL (150-400); WHITE BLOOD CELL COUNT,WBC 6.75 K/uL (3.9-11.3)
[2023-12-08 10:43] LABS: A/G RATIO 0.8 (0.9-1.6); ALBUMIN 2.7 g/dL (3.4-5.0); BILIRUBIN TOTAL 0.5 mg/dL (0.2-1.0); CALCIUM 8.7 mg/dL (8.5-10.1); CARBON DIOXIDE,CO2 26.5 mmol/L (21.0-32.0); CREATININE 1.1 mg/dL (0.6-1.0); EST CRCL DRUG DOSING (CG) 45.2 mL/min; MAGNESIUM 1.8 mg/dL (1.8-2.4); POTASSIUM,K 3.6 mmol/L (3.5-5.1); PROTEIN TOTAL,TP 6.2 g/dL (6.4-8.2)
[2023-12-08] MEDS: Morphine 4 MG/ML Syringe IVPUSH ONE (11:25)
[2023-12-08 11:34] LABS: APPEARANCE,URINE SLT CLOUDY; BILIRUBIN,URINE NEGATIVE (NEGATIVE); COLOR,URINE YELLOW; GLUCOSE,URINE NEGATIVE (NEGATIVE); KETONES,URINE TRACE mg/dL (NEGATIVE); LEUKOCYTE ESTERASE,URINE TRACE (NEGATIVE); NITRITE,URINE NEGATIVE (NEGATIVE); OCCULT BLOOD,URINE SMALL (NEGATIVE); PROTEIN,URINE NEGATIVE (NEGATIVE); UROBILINOGEN,URINE 0.2 EU/dL (<2.0)
[2023-12-08 11:44] LABS: BACTERIA,URINE 2+ (NEGATIVE); EPITHELIAL CELLS,URINE FEW (NONE-FEW)
[2023-12-08] MEDS: Cefdinir 300 MG Cap PO ONE (12:48)
[2023-12-08 12:53] VITALS: BP 129/74; PULSE 83
== END 2023-12-08 12:52 | disposition home or self-care (01) ==
LOC: MW.ED 09:04
DX: R10.84 Generalized abdominal pain (principal); I10 Essential (primary) hypertension; E78.00 Pure hypercholesterolemia, unspecified; K21.9 Gastro-esophageal reflux disease without esophagitis; E03.9 Hypothyroidism, unspecified; Z79.890 Hormone replacement therapy; Z79.2 Long term (current) use of antibiotics; Z79.899 Other long term (current) drug therapy; Z88.6 Allergy status to analgesic agent; Z91.041 Radiographic dye allergy status
CPT/HCPCS: 36415; 74176; 80053; 81001; 81003; 83735; 85025; 87086; 96361; 96374; 96375; 96376; 99284; A9270; J2270; J2405; J3490; J7030

== ENCOUNTER 2024-08-17 10:07 | Emergency (ER) | payer BC ==
[2024-08-17 10:19] VITALS: BP 181/98
[2024-08-17] MEDS ORDERED: Sodium Chloride 0.9% 10 ML Syringe FLUSH PRN (10:25)
[2024-08-17] MEDS ORDERED: Sodium Chloride 0.9% 2.5 ML Syringe FLUSH PRN (10:25)
[2024-08-17 11:00] LABS: BASOPHILS ABSOLUTE AUTO 0.02 K/uL (0.00-0.20); BASOPHILS PERCENT AUTO 0.4 % (0.0-1.0); EOSINOPHILS ABSOLUTE AUTO 0.17 K/uL (0.00-0.45); EOSINOPHILS PERCENT AUTO 3.2 % (0.0-6.0); HEMATOCRIT 40.2 % (37.0-47.0); HEMOGLOBIN 13.6 g/dL (12.0-16.0); IMMATURE GRAN ABSOLUTE AUTO 0.02 K/uL (0.00-0.05); IMMATURE GRAN PERCENT AUTO 0.4 % (0.0-0.4); LYMPHOCYTES ABSOLUTE AUTO 1.78 K/uL (1.00-4.80); LYMPHOCYTES PERCENT AUTO 33.2 % (24.0-44.0); MEAN CORPUSCULAR HEMOGLOBIN 29.2 pg (28.0-32.0); MEAN CORPUSCULAR HGB CONC 33.8 g/dL (32.0-36.0); MEAN CORPUSCULAR VOLUME 86.5 fL (83.0-99.0); MEAN PLATELET VOLUME 8.9 fL (9.4-12.3); MONOCYTES ABSOLUTE AUTO 0.33 K/uL (0.00-0.80); MONOCYTES PERCENT AUTO 6.2 % (0.0-8.0); NEUTROPHILS ABSOLUTE AUTO 3.04 K/uL (1.80-7.70); NEUTROPHILS PERCENT AUTO 56.6 % (41.0-71.0); PLATELET COUNT,PLT 218 K/uL (150-400); RED BLOOD CELL COUNT 4.65 M/uL (4.10-5.30); WHITE BLOOD CELL COUNT,WBC 5.36 K/uL (3.9-11.3)
[2024-08-17 11:33] LABS: ALBUMIN 3.3 g/dL (3.4-5.0); BILIRUBIN TOTAL 0.5 mg/dL (0.2-1.0); CALCIUM 8.9 mg/dL (8.5-10.1); CARBON DIOXIDE,CO2 24.5 mmol/L (21.0-32.0); CREATININE 1.1 mg/dL (0.6-1.0); EST CRCL DRUG DOSING (CG) 44.62 mL/min; POTASSIUM,K 3.7 mmol/L (3.5-5.1); PROTEIN TOTAL,TP 7.2 g/dL (6.4-8.2); TSH ULTRASENSITIVE 7.26 uIU/mL (0.36-3.74)
[2024-08-17 11:36] LABS: A/G RATIO 0.9 (0.9-1.6)
[2024-08-17 11:40] LABS: INR 0.95 (0.86-1.11)
[2024-08-17 12:01] LABS: T4 FREE 0.98 ng/dL (0.76-1.46)
[2024-08-17] MEDS: diphenhydrAMINE 50 MG/ML SDV IVPUSH ONE (12:05)
[2024-08-17 14:20] VITALS: PULSE 90
== END 2024-08-17 14:20 | disposition left against medical advice (07) ==
LOC: MW.ED 10:07
DX: R13.10 Dysphagia, unspecified (principal); I10 Essential (primary) hypertension; E78.00 Pure hypercholesterolemia, unspecified; K21.9 Gastro-esophageal reflux disease without esophagitis; E03.9 Hypothyroidism, unspecified; Z75.8 Other problems related to medical facilities and other health care; Z88.8 Allergy status to other drugs, medicaments and biological substances; Z91.041 Radiographic dye allergy status; Z79.890 Hormone replacement therapy; Z79.899 Other long term (current) drug therapy; Z90.49 Acquired absence of other specified parts of digestive tract
CPT/HCPCS: 36415; 70450; 71046; 80053; 83690; 84439; 84443; 84484; 85025; 85610; 87428; 93005; 93880; 96374; 99284; J1200; 99283